=== PATIENT | female | born 1945 | race Two or more races ===

== ENCOUNTER 2023-11-08 14:33 | Emergency (ER) | payer MEDICARE, BC ==
[~2023-11-08] VITALS: Ht 167.6 cm; Wt 81.6 kg
[2023-11-08] MEDS ORDERED: LIDOCAINE 1%-EPI 1:100,000 20 ML VIAL ONE (15:05)
[2023-11-08] MEDS ORDERED: BACI/NEOM/POLY B OINT PKT 1 UDPKT PACKET ONE (15:07)
[2023-11-08] MEDS ORDERED: LIDOCAINE 0.5% HCL 50 ML VIAL ONE (15:24)
[2023-11-08] MEDS: BACI/NEOM/POLY B OINT PKT 1 UDPKT PACKET TP ONE (15:25)
[2023-11-08] MEDS ORDERED: ACETAMINOPHEN ES 500 MG TABLET ONE (15:26)
[2023-11-08] MEDS: ACETAMINOPHEN ES 500 MG TABLET PO ONE (15:39)
[2023-11-08] MEDS: LIDOCAINE 1%-EPI 1:100,000 20 ML VIAL TP ONE (15:39)
[2023-11-08] MEDS ORDERED: CEPH500C2 PO (18:20)
[2023-11-08 18:40] VITALS: BP 151/82; TEMP 98.4; O2SAT 100
== END 2023-11-08 18:42 | disposition home or self-care (01) ==
LOC: ER 14:54
DX: S81.012A Laceration without foreign body, left knee, initial encounter (principal); S01.511A Laceration without foreign body of lip, initial encounter; F42.4 Excoriation (skin-picking) disorder; F17.200 Nicotine dependence, unspecified, uncomplicated; W10.9XXA Fall (on) (from) unspecified stairs and steps, initial encounter; Y93.89 Activity, other specified; Y92.89 Other specified places as the place of occurrence of the external cause; Y99.8 Other external cause status
CPT/HCPCS: 99284; 70450; 12002; 73564; 70486; J3490 ×2

== ENCOUNTER 2023-11-25 12:10 | Emergency (ER) | payer MEDICARE, BC ==
[~2023-11-25] VITALS: Ht 167.6 cm; Wt 87.5 kg
[~2023-11-25 12:10] MED LIST: CEPH500C2 PO
[2023-11-25 13:30] VITALS: TEMP 98.2
[2023-11-25] MEDS ORDERED: CEPH-570 PO ×2 (14:27→15:23)
[2023-11-25 16:03] VITALS: BP 152/75; O2SAT 98
== END 2023-11-25 15:45 | disposition home or self-care (01) ==
LOC: ER 12:16
DX: T81.33XA Disruption of traumatic injury wound repair, initial encounter (principal); F17.200 Nicotine dependence, unspecified, uncomplicated
CPT/HCPCS: 99283; 73564; A6403